=== PATIENT | female | born 1980 | race Caucasian/White ===

== ENCOUNTER 2018-05-08 14:52 | Emergency (ER) | payer SELFPAY ==
--- NOTE | 2018-05-08 15:09 | ER Report ---
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 They were supposed to be going home but there trip was extended to [place]. Pt ran out of her Lantus and Humolog yesterday. PT stats her sugars are over 500. Pt also states that she has frequent abscess on her body and had one on her R elbow which opened and drained a few days ago and now improved but she has one on the left side of the back of her head that initially opened and drained yellow but now is hard and red "i think its infected". no fevers. no chills REVIEW OF SYSTEMS: Constitutional: No fever, no chills. Eyes: No discharge. ENT: No sore throat. Cardiovascular: No chest pain, no palpitations. Respiratory: No cough, no shortness of breath. Gastrointestinal: No abdominal pain, no vomiting. Genitourinary: No hematuria. Musculoskeletal: No back pain. Skin: No rashes + recent abscess right elbow, + absecess left side of head Neurological: No headache. Allergies: Coded Allergies: Penicillins (Verified Allergy, Unknown, 05/08/18) Sulfa (Sulfonamide Antibiotics) (Verified Allergy, Unknown, 05/08/18) acetaminophen (Verified Allergy, Unknown, 05/08/18) ketorolac (Verified Allergy, Unknown, 05/08/18) vancomycin (Verified Allergy, Unknown, 05/08/18) Home Meds Reported Medications Gabapentin (GABAPENTIN) 300 Mg Capsule, 300 MG PO TID, CAPSULE 05/08/18 Clonazepam (CLONAZEPAM) 1 Mg Tab.rapdis, 1 MG PO BID, #6 TAB 05/08/18 Tizanidine Hcl (TIZANIDINE HCL) 2 Mg Capsule, 2 MG PO TID, CAPSULE 05/08/18 Insulin Lispro 100 Un/Ml Vial (HUMALOG 100 U/ML VIAL) 100 Unit/1 Ml Vial, 10 UNIT SQ, VIAL 05/08/18 Insulin Glargine (LANTUS) 100 Unit/Ml Soln, 30 UNIT SUBQ, ML 05/08/18 Past Medical/Surgical History Pmhx: bipolar, asthma, dm Pshx: staph infection on her hands, abscess, richard, c-s Hx Smoking: Yes Smoking Status: Current: Every Day Smoker Hx Alcohol Use: Yes Constitutional Vital Sign - Last 24 Hours 05/08/18 15:30 Temp 98.1 Pulse 103 Resp 20 B/P (MAP) 139/95 Pulse Ox 92 O2 Delivery Room Air Physical Exam General Appearance: The patient is alert, has no immediate need for airway protection and no signs of toxicity. Eyes: Pupils equal and round no pallor or injection, EOMI ENT: no pharyngeal erythema or exudates, Mucous membranes are moist Respiratory: There are no retractions, lungs are clear to auscultation. Cardiovascular: Regular rate and rhythm. pulses are equal and symmetrical Gastrointestinal: Abdomen is soft and non tender, no masses, bowel sounds normal, no guarding, no rigidity or rebound Neurological: Cranial nerves II-XII grossly intact, no sensory or motor loss Skin: Warm and dry, no rashes, + 1cm x2cm indurated left abscess on occiput with surrounding erythema 5mm Musculoskeletal: Neck is supple non tender, no vertebral tenderness Extremities are nontender, non swollen and have full range of motion. DIFFERENTIAL DIAGNOSIS: After history and physical exam differential diagnosis was considered for hyperglycemia, dka, infection Medical Decision Making Data Points Result Diagram: 05/08/18 1630 05/08/18 1630 Laboratory Hematology Test 05/08/18 16:02 05/08/18 16:30 Whole Blood Glucose 381 mg/DL (75-110) Red Blood Count 5.34 M/uL (4.17-5.56) Mean Corpuscular Volume 81.4 fL (80.0-96.0) Mean Corpuscular Hemoglobin 27.9 pg (26.0-33.0) Mean Corpuscular Hemoglobin Concent 34.2 g/dL (32.0-36.0) Red Cell Distribution Width 15.5 % (11.5-14.5) Mean Platelet Volume 7.9 fL (7.2-11.1) Neutrophils (%) (Auto) 68.5 % (39.4-72.5) Lymphocytes (%) (Auto) 23.8 % (17.6-49.6) Monocytes (%) (Auto) 4.8 % (4.1-12.4) Eosinophils (%) (Auto) 1.9 % (0.4-6.7) Basophils (%) (Auto) 1.0 % (0.3-1.4) Nucleated RBC Relative Count (auto) 0.2 /100WBC Neutrophils # (Auto) 6.4 K/uL (2.0-7.4) Lymphocytes # (Auto) 2.2 K/uL (1.3-3.6) Monocytes # (Auto) 0.5 K/uL (0.3-1.0) Eosinophils # (Auto) 0.2 K/uL (0.0-0.5) Basophils # (Auto) 0.1 K/uL (0.0-0.1) Nucleated RBC Absolute Count (auto) 0.02 K/uL Sodium Level 135 mmol/L (137-145) Potassium Level 4.1 mmol/L (3.5-5.0) Chloride Level 99 mmol/L (98-107) Carbon Dioxide Level 24 mmol/L (22-31) Blood Urea Nitrogen 11 mg/dl (7-18) Creatinine 0.60 mg/dl (0.52-1.04) Glomerular Filtration Rate Calc > 60.0 Random Glucose 378 mg/dl (75-110) Calcium Level 9.4 mg/dl (8.4-10.2) Acetone, Qualitative Negative Chemistry Test 05/08/18 16:02 05/08/18 16:30 Whole Blood Glucose 381 mg/DL (75-110) White Blood Count 9.3 k/uL (4.5-11.0) Red Blood Count 5.34 M/uL (4.17-5.56) Hemoglobin 14.9 g/dL (12.0-16.0) Hematocrit 43.4 % (34.0-47.0) Mean Corpuscular Volume 81.4 fL (80.0-96.0) Mean Corpuscular Hemoglobin 27.9 pg (26.0-33.0) Mean Corpuscular Hemoglobin Concent 34.2 g/dL (32.0-36.0) Red Cell Distribution Width 15.5 % (11.5-14.5) Platelet Count 274 K/uL (150-450) Mean Platelet Volume 7.9 fL (7.2-11.1) Neutrophils (%) (Auto) 68.5 % (39.4-72.5) Lymphocytes (%) (Auto) 23.8 % (17.6-49.6) Monocytes (%) (Auto) 4.8 % (4.1-12.4) Eosinophils (%) (Auto) 1.9 % (0.4-6.7) Basophils (%) (Auto) 1.0 % (0.3-1.4) Nucleated RBC Relative Count (auto) 0.2 /100WBC Neutrophils # (Auto) 6.4 K/uL (2.0-7.4) Lymphocytes # (Auto) 2.2 K/uL (1.3-3.6) Monocytes # (Auto) 0.5 K/uL (0.3-1.0) Eosinophils # (Auto) 0.2 K/uL (0.0-0.5) Basophils # (Auto) 0.1 K/uL (0.0-0.1) Nucleated RBC Absolute Count (auto) 0.02 K/uL Glomerular Filtration Rate Calc > 60.0 Calcium Level 9.4 mg/dl (8.4-10.2) Acetone, Qualitative Negative Toxicology Test 05/08/18 16:30 Acetone, Qualitative Negative ED Course/Re-evaluation Clinical Indication for ER IV: Hydration, IV Access ED Course 05/08/2018 4:07:46 pm Spoke [facility] in [place] , who states that pt is on humolog 15 units three times a day with meals then a sliding scale in between. Pt is also on Lantus 30 units at night. Pt is on Zantadine 2mg , clonazepam 1mb and oxycarbazepine 300mg 05/08/2018 4:12:09 pm Pt refused the toradol stating that it gives her hives. Pt is able to take motrin/advil however. Pt states she took advil prior to arrival and still in pain. 05/08/2018 4:49:07 pm PTs serum acetone is negative. Insulin R given in ED for elevated bs. Fluids are running. 05/08/2018 5:22:55 pm Pts blood sugar 261 after fluids. Pt requesting tramadol script to be filled, stating she takes that at home. Called [facility] pharmacy again and they do not have an active script for tramadol. Pts wound on her head is more cellulitis then abscess. No fluctuance. Pt does pic at the area to let it drain. I suspect pt caused a cellulitis. Decision to Disposition Date: May 08, 2018 Decision to Disposition Time: 17:32 Depart Departure Latest Vital Signs Vital Signs Date Time Temp Pulse Resp B/P (MAP) Pulse Ox O2 Delivery O2 Flow Rate FiO2 05/08/18 15:30 98.1 103 20 139/95 92 Room Air Impression: Primary Impression: Cellulitis and abscess of head Additional Impressions: Diabetes Medication refill Condition: Improved Disposition: HOME OR SELF-CARE New Scripts Tramadol Hcl (TRAMADOL HCL) 50 Mg Tablet 50-100 MG PO Q4-6H Y for PAIN, #10 TAB Prov: NICOLE SCHWAB V DO 05/08/18 Insulin Glargine (LANTUS) 100 Unit/Ml Soln 30 UNIT SUBQ QHS, #1 VIAL Prov: EDILBERTODELANEYNICOLE V DO 05/08/18 Insulin Lispro 100 Un/Ml Vial (HUMALOG 100 U/ML VIAL) 100 Unit/1 Ml Vial 15 UNIT SQ TIDCF, #1 VIAL Prov: NICOLE SCHWAB V DO 05/08/18 Clindamycin Hcl (CLEOCIN HCL) 150 Mg Capsule 150 MG PO Q6H, #28 CAPSULE Prov: NICOLE SCHWAB V DO 05/08/18 Departure Forms: ER Transition Record, Medications Reconciliation, Patient Portal Information Patient Instructions: Cellulitis (GEN) Additional Instructions: Follow up with your doctor when you get back home. It is important that you fill both your antibiotic and take it 4 times day. I also sent in scripts for your insulin. Continue your advil. Tramadol 1 every 4 hours as needed for severe pain. Problem Qualifiers Additional Impressions: Diabetes Diabetes mellitus type: type 1 Diabetes mellitus complication status: with hyperglycemia Qualified Codes: E10.65 - Type 1 diabetes mellitus with hyperglycemia NICOLE SCHWAB DO May 08, 2018 15:09
[2018-05-08] MEDS ORDERED: CLINDAMYCIN 600 MG/4 ML 600 MG in NS(*) 0.9% 100 ML BAG 100 ML IVPB ONE (15:50)
[2018-05-08] MEDS ORDERED: KETOROLAC 15 MG/ML VIAL IVP ONE (15:50)
[2018-05-08] MEDS ORDERED: NS(*) 0.9% 1000 ML BAG 1,000 ML IV ONE (15:50)
[2018-05-08] MEDS ORDERED: CLINDAMYCIN(*) 600 MG/NS 50 ML 50 ML IVPB ONE (16:00)
[2018-05-08] MEDS ORDERED: diphenhydrAMINE 50 MG/ML VIAL IVP ONE (16:05)
[2018-05-08] MEDS ORDERED: INSU HUM REG 100 U/ML(ER ONLY) 10 ML VIAL SUBQ ONE (16:15)
[2018-05-08 16:41] LABS: PLATELET COUNT, AUTOMATED 274 K/uL (150-450)
[2018-05-08] MEDS ORDERED: INSU100V24 SQ ×2 (17:29→17:36)
[2018-05-08] MEDS ORDERED: TIZA2CAP3 PO (17:29)
[2018-05-08] MEDS ORDERED: GABA-549 PO (17:29)
[2018-05-08] MEDS ORDERED: LANI SUBQ ×2 (17:29→17:36)
[2018-05-08] MEDS ORDERED: CLON-389 PO (17:29)
[2018-05-08 17:30] VITALS: BP 152/119
[2018-05-08] MEDS ORDERED: traMADol 50 MG TAB PO ONE (17:30)
[2018-05-08] MEDS ORDERED: TRAM-420 PO (17:36)
[2018-05-08] MEDS ORDERED: CLIN-60 PO (17:36)
== END 2018-05-08 17:51 | disposition home or self-care (01) ==
LOC: ER 15:03
DX: L03.811 Cellulitis of head [any part, except face] (principal); L02.811 Cutaneous abscess of head [any part, except face]; E10.65 Type 1 diabetes mellitus with hyperglycemia
CPT/HCPCS: 36416; 82009; 82948; 85025; 96361; 96365; 96375; 99284; J1200; J1815; J3490; J7030; 82310; 82374; 82435; 82565; 82947; 84132; 84295; 84520